=== PATIENT | male | born 1990 | race Two or more races ===

== ENCOUNTER 2017-05-18 19:03 | Inpatient (IN) | payer OTHER ==
[2017-05-18 20:56] LABS: HEMATOCRIT 47.3 % (42.0-52.0); MEAN CORPUSCULAR HEMOGLOBIN 31.8 pg (27.0-33.0); MEAN CORPUSCULAR HGB CONC 33.8 g/dl (32.0-36.5); PLATELET COUNT, AUTOMATED 225 10^3/uL (150-450); RED BLOOD COUNT 5.03 10^6/uL (4.30-6.10); RED CELL DISTRIBUTION WIDTH 13.2 % (11.5-14.5); WHITE BLOOD COUNT 11.1 10^3/uL (4.0-10.0)
[2017-05-18 21:26] LABS: AMPHETAMINES LEVEL URINE NEGATIVE (NEGATIVE); BARBITURATES URINE NEGATIVE (NEGATIVE); BENZODIAZEPINES URINE NEGATIVE (NEGATIVE); CANNABINOIDS URINE NEGATIVE (NEGATIVE); COCAINE METABOLITE URINE NEGATIVE (NEGATIVE); METHADONE URINE NEGATIVE (NEGATIVE); OPIATES URINE NEGATIVE (NEGATIVE); PHENCYCLIDINE URINE NEGATIVE (NEGATIVE)
[2017-05-18] MEDS: NICOTINE 21MG/24HR 1 EA TRANSDERMAL TD (21:35)
[2017-05-18 21:38] LABS: ALBUMIN 4.8 GM/DL (3.2-5.2); ALKALINE PHOSPHATASE 69 U/L (45-117); ALT/SGPT 15 U/L (12-78); ANION GAP 6 MEQ/L (8-16); AST/SGOT 13 U/L (7-37); BILIRUBIN,DIRECT 0.1 MG/DL (0.0-0.2); BILIRUBIN,TOTAL 0.4 MG/DL (0.2-1.0); BLOOD UREA NITROGEN 20 MG/DL (7-18); CALCIUM LEVEL 9.2 MG/DL (8.5-10.1); CARBON DIOXIDE LEVEL 29 MEQ/L (21-32); CHLORIDE LEVEL 107 MEQ/L (98-107); CREATININE FOR GFR 1.19 MG/DL (0.70-1.30); GLOMERULAR FILTRATION RATE > 60.0 (>60); GLUCOSE, FASTING 85 MG/DL (70-100); POTASSIUM SERUM 4.1 MEQ/L (3.5-5.1); SALICYLATE LEVEL < 1.7 MG/DL (5.0-30.0); SODIUM LEVEL 142 MEQ/L (136-145); TOTAL PROTEIN 7.8 GM/DL (6.4-8.2)
[2017-05-18 21:40] LABS: ETHYL ALCOHOL (ETHANOL) < 0.003 % (0.000-0.010)
[2017-05-18 21:41] LABS: ACETAMINOPHEN LEVEL < 2.0 UG/ML (10.0-30.0)
[2017-05-18] MEDS ORDERED: ACETAMINOPHEN TAB 650MG DOSE (2X325MG) PO (22:15)
[2017-05-18] MEDS ORDERED: MAALOX 30 ML SUSP *UDC PO (22:15)
[2017-05-18] MEDS ORDERED: traZODone 50 MG TAB PO (22:15)
[2017-05-18] MEDS ORDERED: MOM 30ML SUSPENSION UDC PO (22:15)
[2017-05-19] MEDS ORDERED: GABAPENTIN 100 MG CAP PO (13:45)
[2017-05-19] MEDS: PRAZOSIN 1 MG CAP PO (22:46)
[2017-05-19] MEDS: RAMELTEON 8 MG TAB (ROZEREM) PO (22:47)
[2017-05-20 06:41] LABS: HEMATOCRIT 40.9 % (42.0-52.0); MEAN CORPUSCULAR HEMOGLOBIN 31.8 pg (27.0-33.0); MEAN CORPUSCULAR VOLUME 93.6 fl (80.0-96.0); PLATELET COUNT, AUTOMATED 171 10^3/uL (150-450); RED BLOOD COUNT 4.37 10^6/uL (4.30-6.10); RED CELL DISTRIBUTION WIDTH 12.8 % (11.5-14.5); WHITE BLOOD COUNT 8.2 10^3/uL (4.0-10.0)
[2017-05-20 06:45] LABS: HEMOGLOBIN 13.9 g/dl (14.0-18.0)
[2017-05-20] MEDS: PRAZOSIN 1 MG CAP PO (21:00)
[2017-05-20] MEDS ORDERED: traZODone 50 MG TAB PO (21:00)
[2017-05-20] MEDS: traZODone 25MG PER 1/2 TABLET PO (21:00)
[2017-05-21] MEDS: PRAZOSIN 1 MG CAP PO (22:51)
== END 2017-05-22 13:45 | disposition home or self-care (01) | DRG 881 ==
LOC: M ED 19:03 → M ED INP 22:13 → M PSY 23:36
DX: F32.9 Major depressive disorder, single episode, unspecified (principal); F43.10 Post-traumatic stress disorder, unspecified; G47.00 Insomnia, unspecified; F17.200 Nicotine dependence, unspecified, uncomplicated; D72.829 Elevated white blood cell count, unspecified

== ENCOUNTER 2017-06-24 05:18 | Inpatient (IN) | payer OTHER ==
[2017-06-24] MEDS: LORazepam 2 MG TAB PO (08:17)
[2017-06-24 08:20] LABS: HEMATOCRIT 42.2 % (42.0-52.0); MEAN CORPUSCULAR HEMOGLOBIN 32.7 pg (27.0-33.0); MEAN CORPUSCULAR HGB CONC 35.5 g/dl (32.0-36.5); MEAN CORPUSCULAR VOLUME 91.9 fl (80.0-96.0); PLATELET COUNT, AUTOMATED 207 10^3/uL (150-450); RED BLOOD COUNT 4.59 10^6/uL (4.30-6.10); RED CELL DISTRIBUTION WIDTH 12.7 % (11.5-14.5); WHITE BLOOD COUNT 11.5 10^3/uL (4.0-10.0)
[2017-06-24] MEDS: NICOTINE 14 MG/24 HR TRANSDERMAL TD (09:00)
[2017-06-24 09:02] LABS: ACETAMINOPHEN LEVEL < 2.0 UG/ML (10.0-30.0); ALBUMIN 4.2 GM/DL (3.2-5.2); ALKALINE PHOSPHATASE 61 U/L (45-117); ALT/SGPT 21 U/L (12-78); ANION GAP 7 MEQ/L (8-16); AST/SGOT 13 U/L (7-37); BILIRUBIN,DIRECT 0.2 MG/DL (0.0-0.2); BILIRUBIN,TOTAL 0.9 MG/DL (0.2-1.0); BLOOD UREA NITROGEN 12 MG/DL (7-18); CALCIUM LEVEL 8.9 MG/DL (8.5-10.1); CARBON DIOXIDE LEVEL 26 MEQ/L (21-32); CHLORIDE LEVEL 109 MEQ/L (98-107); CREATININE FOR GFR 1.14 MG/DL (0.70-1.30); GLOMERULAR FILTRATION RATE > 60.0 (>60); GLUCOSE, FASTING 92 MG/DL (70-100); POTASSIUM SERUM 3.9 MEQ/L (3.5-5.1); SALICYLATE LEVEL < 1.7 MG/DL (5.0-30.0); SODIUM LEVEL 142 MEQ/L (136-145); THYROID STIMULATING HORMONE 0.558 uIU/ML (0.358-3.740); TOTAL PROTEIN 7.2 GM/DL (6.4-8.2)
[2017-06-24 09:12] LABS: ETHYL ALCOHOL (ETHANOL) < 0.003 % (0.000-0.010)
[2017-06-24] MEDS ORDERED: traZODone 50 MG TAB PO (10:30)
[2017-06-24] MEDS ORDERED: MAALOX 30 ML SUSP *UDC PO (10:30)
[2017-06-24] MEDS ORDERED: ACETAMINOPHEN TAB 650MG DOSE (2X325MG) PO (10:30)
[2017-06-24] MEDS ORDERED: MOM 30ML SUSPENSION UDC PO (10:30)
[2017-06-24 10:35] LABS: AMPHETAMINES LEVEL URINE NEGATIVE (NEGATIVE); BARBITURATES URINE NEGATIVE (NEGATIVE); BENZODIAZEPINES URINE NEGATIVE (NEGATIVE); CANNABINOIDS URINE NEGATIVE (NEGATIVE); COCAINE METABOLITE URINE NEGATIVE (NEGATIVE); METHADONE URINE NEGATIVE (NEGATIVE); OPIATES URINE NEGATIVE (NEGATIVE); PHENCYCLIDINE URINE NEGATIVE (NEGATIVE)
[2017-06-25] MEDS: NICOTINE 14 MG/24 HR TRANSDERMAL TD ×2 (08:55→15:16)
[2017-06-26] MEDS: NICOTINE 14 MG/24 HR TRANSDERMAL TD (08:49)
[2017-06-26] MEDS ORDERED: hydrOXYzine 25 MG TAB PO (13:45)
[2017-06-26] MEDS: MIRTAZAPINE 15 MG TAB PO (21:00)
[2017-06-27] MEDS: NICOTINE 14 MG/24 HR TRANSDERMAL TD (08:22)
[2017-06-27] MEDS: MIRTAZAPINE 15 MG TAB PO (22:07)
[2017-06-28] MEDS: NICOTINE 14 MG/24 HR TRANSDERMAL TD (08:58)
== END 2017-06-28 11:20 | disposition home or self-care (01) | DRG 885 ==
LOC: M ED 05:18 → M ED INP 10:23 → M PSY 11:20
DX: F33.2 Major depressive disorder, recurrent severe without psychotic features (principal); F43.10 Post-traumatic stress disorder, unspecified; G47.00 Insomnia, unspecified; F41.9 Anxiety disorder, unspecified; F17.200 Nicotine dependence, unspecified, uncomplicated; D72.829 Elevated white blood cell count, unspecified